=== PATIENT | female | born 1960 | race Caucasian/White ===

== ENCOUNTER 2022-12-01 15:44 | Emergency (ER) | payer BC ==
[~2022-12-01] VITALS: Ht 154.9 cm; Wt 48.5 kg
--- NOTE | 2022-12-01 16:02 | NUR ---
DR HANSON AT BEDSIDE FOR EVAL
--- NOTE | 2022-12-01 16:15 | NUR ---
PT REFUSING EKG, STATES "I ALREADY HAVE EKG TWICE TODAY."
[2022-12-01] MEDS ORDERED: ARIP2TAB19 PO (16:34)
[2022-12-01] MEDS ORDERED: RALO60TA PO (16:34)
[2022-12-01] MEDS ORDERED: ATOR10TA PO (16:34)
[2022-12-01] MEDS ORDERED: GABA300C PO (16:34)
[2022-12-01] MEDS ORDERED: DIVA500T54 PO (16:34)
[2022-12-01] MEDS ORDERED: FLUO20CA42 PO (16:34)
[2022-12-01] MEDS ORDERED: VALA500T40 PO (16:34)
--- NOTE | 2022-12-01 16:39 | NUR ---
PT AGITATED, INSISTING THAT SHE WILL NOT STAY OVERNIGHT TO GET MRI THAT ER PROVIDER RECOMMENDATION AND LEFT.
[2022-12-01 16:50] VITALS: BP 128/92
== END 2022-12-01 16:51 | disposition left against medical advice (07) ==
LOC: ER 15:59
DX: R42 Dizziness and giddiness (principal); F31.9 Bipolar disorder, unspecified; Z88.8 Allergy status to other drugs, medicaments and biological substances; Z60.2 Problems related to living alone; Z79.899 Other long term (current) drug therapy